=== PATIENT | male | born 1930 | race Caucasian/White ===

== ENCOUNTER 2016-11-27 11:17 | Observation (INO) | payer OTHER ==
[~2016-11-27] VITALS: Ht 175.3 cm; Wt 113.6 kg
[~2016-11-27 11:17] MED LIST: ALBUTEROL SULF8.5 GM IH; DILAUDID2 MG PO; PREDNISONE50 MG PO; ZITHROMAX Z-PA250 MG PO
[2016-11-27 11:57] LABS: HEMATOCRIT 36.6 % (38.0-50.0); MCH 29.7 PG (29.0-34.0); MCHC 32.8 G/DL (30.0-36.0); MCV 90.6 FL (86-99); MEAN PLAT.VOLUME 10.3 uM^3 (9.0-12.4); PLATELET COUNT 211 K/uL (156-360); RBC DIS.WIDTH-CV 14.9 % (11.8-14.6); RBC DIS.WIDTH-SD 49.4 % (39-53); RED BLOOD COUNT 4.04 M/uL (4.00-5.50); WHITE BLOOD COUNT 5.8 K/uL (4.1-10.2)
[2016-11-27 12:09] LABS: CHLORIDE 103 mEq/L (99-109); POTASSIUM 4.2 mEq/L (3.7-5.4); SODIUM 140 mEq/L (136-147)
[2016-11-27 12:10] LABS: GLUCOSE 111 mg/dL (70-99)
[2016-11-27 12:12] LABS: ANION GAP 9 MEQ/L (2-14)
[2016-11-27 12:14] LABS: GFR ESTIMATE (CALCULATED) > 59 mL/min/
[2016-11-27 12:15] LABS: UREA NITROGEN (BUN) 15 mg/dL (9-23)
[2016-11-27 12:18] LABS: TROP-I INTERPRETATION NEGATIVE; TROPONIN-I < 0.01 ng/mL (0.0-0.30)
[2016-11-27] MEDS ORDERED: KEFLEX500 MG PO (13:26)
[2016-11-27] MEDS ORDERED: BACTRIM,SEPT1 TABLET PO (13:26)
[2016-11-27 13:50] VITALS: BP 175/77
== END 2016-11-27 13:29 | disposition left against medical advice (07) ==
LOC: EME 11:17 → EDOF 13:10
DX: R07.89 Other chest pain (principal); L03.031 Cellulitis of right toe; R06.00 Dyspnea, unspecified; E78.5 Hyperlipidemia, unspecified; I25.10 Atherosclerotic heart disease of native coronary artery without angina pectoris; Z86.73 Personal history of transient ischemic attack (TIA), and cerebral infarction without residual deficits
CPT/HCPCS: 71020; 80048; 84484; 85027; 87070; 87075; 87205; 93005; 94640; G0378; J7512